=== PATIENT | male | born 1945 | race Caucasian/White ===

== ENCOUNTER 2025-01-12 10:23 | Emergency (ER) | payer MEDICARE, SELFPAY ==
--- NOTE | 2025-01-12 10:32 | ED_ITS ---
HPI - Ear Problem General Chief complaint: Ear Stated complaint: Both Ears Irritation/Cough Time Seen by Provider: 01/12/25 10:32 Source: patient Mode of arrival: ambulatory Limitations: no limitations History of Present Illness HPI Narrative: 79-year-old male presents with decreased hearing to right here for 3 weeks. No other complaints today. All systems reviewed and negative except as noted above. Related Data Allergies Allergy/AdvReac Type Severity Reaction Status Date / Time wool Allergy Intermediate turns red Verified 11/26/17 13:36 lanolin alcohols Allergy Mild Verified 11/26/17 13:36 Review of Systems Review of Systems: CONSTITUTIONAL: Denies fever, chills, or sweats. EYES: Denies visual changes, redness, or discharge. ENT: Denies rhinorrhea, congestion, sore throat . Decreased hearing to right ear. CARDIOVASCULAR: Denies chest pain, palpitations, or edema. RESPIRATORY: Denies cough or dyspnea. GASTROINTESTINAL: Denies abdominal pain, nausea, vomiting, or diarrhea. GENITOURINARY: Denies dysuria or hematuria. SKIN: Denies rash or itching. MUSCULOSKELETAL: Denies back pain, joint pain, or myalgia. NEUROLOGIC: Denies headache, numbness, or weakness. PSYCHIATRIC: Denies anxiety or depression. All other systems reviewed are negative, except as documented in HPI. PMFSH Comments At time of signature, agree with nursing past medical, surgical, social and family history. There is no relevant family history pertinent to the presenting complaint. Exam Narrative: GENERAL: This is a well-nourished, well-developed patient, in no apparent distress. HEAD: normocephalic, atraumatic. EYES: PERRL. Sclera clear/white. Vision is grossly intact. EARS: External ears normal, Cerumen impaction it to right ear canal. Left ear canal normal, after irrigation TMs normal without perforation. Hearing grossly intact. NOSE: External nose normal NECK: Neck supple, non-tender without lymphadenopathy, masses or thyromegaly. CARDIOVASCULAR: Regular rate and rhythm without murmurs, gallops, or rubs. RESPIRATORY: Clear to auscultation. Breath sounds equal bilaterally. No wheezes, rales, or rhonchi. SKIN: warm, Dry, intact with no suspicious lesions or rash, good texture and turgor. NEURO: awake, alert, and oriented to person, place and time. There were no obvious focal neurologic abnormalities. EXTREMITIES: No joint tenderness, effusion, or edema noted. Course Course Level of Care: Express Care Visit Vital Signs Vital signs: reviewed Procedures Ear Wax Removal Right Ear: Ear Wax Removal Date: 01/12/25 Ear Wax Removal Time: 10:43 Cerumenolytic Used: other ( none) Results: Re-examined: cerumen removed completely TM Examination: TM(s) intact, normal appearance Ear Canal Exam: atraumatic Patient Tolerated Procedure: well Complications: no problems Technique: ear canal irrigated and ear canal curetted Medical Decision Making MDM Narrative Medical decision making narrative: cerumen irrigated from right ear canal with water and ear curette. Patient tolerated well. Patient well-appearing, nontoxic. Discharge Plan Discharge Clinical Impression: Impacted cerumen of right ear Patient Disposition: Home Condition: Stable Patient Language: [place] Irish Follow-up/Referrals: Nadeem,Jonathan Reis MD [Primary Care Provider] - Time of Disposition: 10:45
[2025-01-12 10:33] VITALS: BP 100/53; PULSE 80; RESP 16; TEMP 37.1; O2SAT 98
== END 2025-01-12 10:56 | disposition home or self-care (01) ==
PROVIDERS: Emergency Provider Nurse Practitioner Family; PCP Family Medicine
DX: H61.21 Impacted cerumen, right ear (principal)
CPT/HCPCS: 69210; 99202; G0463

== ENCOUNTER 2025-07-24 19:09 | Emergency (ER) | payer MEDICARE, SELFPAY ==
--- NOTE | ~2025-07-24 | XR_ITS ---
XR chest 1V INDICATION:. 80 years Male sob/fall COMPARISON: None FINDINGS: A single view of the chest demonstrates normal heart size. Calcified right hilar lymph nodes are noted. There are chronic interstitial changes. No focal consolidation, pleural effusions or pneumothorax. IMPRESSION: No acute pulmonary findings. Reviewed, dictated and finalized at location S. [facility]TER
--- OUTSIDE RECORDS SUMMARY | 2025-07-24 19:11 | XMS_ITS | Clinical Summary ---
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 Name Role Phone Unavailable Primary Care Provider Unavailabl e Social History Tobacco Use Types Packs/Day Years Used Date Smoking Tobacco: Never Assessed Sex and Gender Information Value Date Recorded Sex Assigned at Not on file Legal Sex Male 7:40 PM CDT Gender Identity Not on file Sexual Orientation Not on file Plan of Treatment Health Maintenance Due Date Last Done Comments DTaP, Tdap and Td Vaccines ( 1 - Tdap) 1964 Pneumococcal Vaccine: 50+ Ye ars (1 of 1 - PCV) 1995 Zoster Vaccines (1 of 2) 1995 RSV Immunization or 60+ Years (1 - 1-dose 75+ series) 2020 COVID-19 Vaccine ( - 2024-2 6 season) 2025 Influenza Adult (#1) 2025 Hepatitis A Vaccines Aged Out No long er eligible based on patient's age to complete this topic Meningococcal B Vaccine Aged Out No l onger eligible based on patient's age to complete this topic Meningococcal Vaccine Aged Out No jasmine yrn eligible based on patient's age to complete this topic RSV Immunizations Under 20 Months Aged Out No longer eligible based on patient's age to complete this topic
[2025-07-24 19:13] VITALS: BP 157/72; PULSE 110; RESP 17; TEMP 37.1; O2SAT 96
--- NOTE | 2025-07-24 19:18 | ECG_ITS ---
Test Date: 2025-07-24 19:23:37 Measurements Intervals [place] Rate: 103 P: 43 [place]: 173 QRS: 62 QRSD: 82 T: 71 QT: 310 QTc: 407 Interpretive Statements SINUS TACHYCARDIA POSSIBLE LEFT ATRIAL ENLARGEMENT BORDERLINE ST-T WAVE ABNORMALITY- HIGH LATERAL LEADS BASELINE ARTIFACT- I, II, III, AVR, AVL, AVF, V1-V6 BORDERLINE ECG No previous ECG available for comparison Electronically Signed On 07-24-2025 19:25:54 [employer] SPECIALIST by Eusebio Stock D.O.
[2025-07-24 23:02] VITALS: BP 162/70; PULSE 93; RESP 18; TEMP 36.4; O2SAT 98
[2025-07-25 01:11] VITALS: BP 130/72; PULSE 94; RESP 18; TEMP 36.6; O2SAT 97
--- NOTE | 2025-07-25 02:55 | ED.FALL ---
HPI - Fall General Chief Complaint: Fall Stated Complaint: sob Time Seen by Provider: 07/25/25 02:43 History of Present Illness HPI Narrative: 80-year-old male with history of longstanding COPD presenting to the emergency department today after a fall. Patient states he tripped over something while he was trying get back in the house and was holding his keys in his hand clots towards his chest and landed on his fist into his chest wall. [place] like the wind was knocked out of a but was able to get up right away. Did not lose consciousness. He is having some pain over the anterior lateral right rib cage ever since this happened several hours ago. States that hurts to take a deep breath now. No nausea or vomiting. No vision changes. No chest pain or back pain. Did not take anything for pain besides an Advil which did help slightly before he got here. No broken bones before and he no longer smokes. He has no other complaints at this time aside from pain with deep breathing and movement. Related Data Allergies Allergy/AdvReac Type Severity Reaction Status Date / Time wool Allergy Intermediate turns red Verified 11/26/17 13:36 lanolin alcohols Allergy Mild no Verified 01/12/25 10:55 Review of Systems Review of Systems: as reviewed above in HPI All systems reviewed & are unremarkable except as noted in HPI and below Exam Narrative: GENERAL: [Well-appearing, well-nourished, and in no acute distress.] HEAD: [Normocephalic, atraumatic.] EYES: [PERRLA and EOMI.] ENT: Nares clear, no rhinorrhea or epistaxis. Mucous membranes moist. NECK: Supple. CHEST: clear to auscultation, no respiratory distress, wheezing, tachypnea or asymmetry. He has very focal reproducible tenderness to palpation over the inferior margin of the right anterior ribcage where he was holding his hand towards his chest during the fall. No overlying bruising. 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 HEART: [Regular rate and rhythm]. No murmur heard. [Normal peripheral pulses.] ABDOMEN: [Soft, nondistended], [nontender], [No rigidity or guarding] EXTREMITIES: Normal range of motion. [No edema.] SKIN: Warm, dry, no rash. NEURO: [No focal deficits]. Alert and oriented [x3.] PSYCH: [Normal mood and affect.] Course Vital Signs Vital signs: Vital Signs Temperature 37.1 C 07/24/25 19:13 Pulse Rate 110 H 07/24/25 19:13 Respiratory Rate 17 07/24/25 19:13 Blood Pressure 157/72 H 07/24/25 19:13 Pulse Oximetry 96 07/24/25 19:13 Oxygen Delivery Room Air 07/24/25 19:13 Temperature 36.6 C 07/25/25 01:11 Pulse Rate 83 07/25/25 03:26 Respiratory Rate 24 H 07/25/25 03:26 Blood Pressure 139/81 07/25/25 03:26 Pulse Oximetry 97 07/25/25 03:26 Oxygen Delivery Room Air 07/24/25 19:13 MDM MDM Narrative Medical decision making narrative: 80-year-old male with history of longstanding COPD presenting to the emergency department today after a fall. Patient states he tripped over something while he was trying get back in the house and was holding his keys in his hand clots towards his chest and landed on his fist into his chest wall. [place] like the wind was knocked out of a but was able to get up right away. Did not lose consciousness. He is having some pain over the anterior lateral right rib cage ever since this happened several hours ago. States that hurts to take a deep breath now. No nausea or vomiting. No vision changes. No chest pain or back pain. Did not take anything for pain besides an Advil which did help slightly before he got here. No broken bones before and he no longer smokes. He has no other complaints at this time aside from pain with deep breathing and movement. clear to auscultation, no respiratory distress, wheezing, tachypnea or asymmetry. He has very focal reproducible tenderness to palpation over the inferior margin of the right anterior ribcage where he was holding his hand towards his chest during the fall. No overlying bruising. 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 Normal vital signs. No tachycardia, tachypnea, fever, hypoxemia or blood pressure concerns. Symptoms consistent with musculoskeletal contusion of the rib cage, rib fracture, pneumothorax less likely. EKG and chest x-ray were ordered. Chest x-ray shows no pneumothorax or obvious displaced rib fractures. Most likely contusion. Patient treated with a combination of anti-inflammatories and pain control medications and given incentive spirometer as well as training on how to use it to prevent subsequent atelectasis or pneumonia given his high risk COPD. Patient comfortable with plan for discharge home with regular primary care provider follow-up with return precautions and prescriptions for pain meds. Family comfortable with the plan and safely discharged afterwards. Differential Diagnosis Differential Diagnosis: Symptoms consistent with musculoskeletal contusion of the rib cage, rib fracture, pneumothorax less likely. Imaging Data Attestation: I personally reviewed and interpreted this imaging study as follows: My impression: Impressions Chest X-Ray 07/24/25 19:41 IMPRESSION: No acute pulmonary findings. Radiologist's impression: ITS Impressions Chest X-Ray 07/24/25 19:41 IMPRESSION: No acute pulmonary findings. Discharge Plan Discharge Clinical Impression: Contusion of rib on right side Patient Disposition: Home Condition: Stable Instructions: Antibiotic Form, Rib Contusion (ED) Additional Instructions: X-ray and EKG were normal in reassuring. Symptoms consistent with a musculoskeletal contusion of the right ribcage anteriorly. We will send you home with medications for symptom control. Use the incentive spirometer at least once per hour for deep breathing exercises to prevent lung collapse and pneumonias. Return with any emergent concerns otherwise please follow-up with regular primary care provider. Symptoms will get better after several days. Patient Language: Ukrainian Prescriptions: New lidocaine 5 % adhesive patch,medicated 1 patch topical DAILY Qty: 15 0RF Rx Instructions: leave on most painful area for up to 12 hrs methocarbamol 500 mg tablet 500 mg PO HS Qty: 7 0RF acetaminophen [Tylenol Extra Strength] 500 mg tablet 1,000 mg PO TID PRN (Reason: pain) Qty: 30 0RF ibuprofen 800 mg tablet 800 mg PO TID PRN (Reason: pain) Qty: 30 0RF Follow-up/Referrals: Nadeem,Jonathan Reis MD [Primary Care Provider, Unknown] Time of Disposition: 03:04
[2025-07-25] MEDS: oxyCODONE HCL (*CRX) 2.5 MG TAB IR PO (03:07)
[2025-07-25] MEDS: LIDOCAINE 5% PATCH 1 PATCH TRANSDERM (03:07)
[2025-07-25] MEDS: KETOROLAC 30 MG/ML VIAL (*BKC) IM (03:07)
[2025-07-25 03:26] VITALS: BP 139/81; PULSE 83; RESP 24; O2SAT 97
== END 2025-07-25 03:27 | disposition home or self-care (01) ==
PROVIDERS: Emergency Provider Student in an Organized Health Care Education/Training Program; PCP Family Medicine
DX: S20.211A Contusion of right front wall of thorax, initial encounter (principal); J44.9 Chronic obstructive pulmonary disease, unspecified; W18.09XA Striking against other object with subsequent fall, initial encounter
CPT/HCPCS: 71045; 93005; 99283; A9270; J1885